=== PATIENT | female | born 1950 | race Caucasian/White ===

== ENCOUNTER 2022-07-26 08:26 | Emergency (ER) | payer MEDICARE, OTHER ==
[~2022-07-26] VITALS: Ht 157.5 cm; Wt 92.3 kg
[2022-07-26 08:34] VITALS: TEMP 97.8
[2022-07-26 08:57] LABS: BASO # 0.1 K/mm3 (0.0-0.2); EOS # 0.8 K/mm3 (0.0-0.7); EOS % 7.6 % (0.0-4.0); GRAN # 5.6 K/mm3 (1.4-6.5); HEMATOCRIT 45.9 % (37.0-47.0); LYMPH # 2.8 K/mm3 (1.2-3.4); LYMPH % 28.1 % (20.0-51.0); MEAN CELL VOLUME 86 fl (80.0-100.0); MEAN CORPUSCULAR HEMOGLOBIN 28 pg (27-31); MEAN CORPUSCULAR HGB CONC 33 g/dl (33.0-37.0); MEAN PLATELET VOLUME 12.1 fl (7.4-10.4); MONO # 0.7 K/mm3 (0.1-0.6); MONO % 7.1 % (1.7-9.3); PLATELET COUNT 252 K/mm3 (130-400); RED BLOOD COUNT 5.33 M/mm3 (4.10-5.30); REDCELL DISTRIBUTION WIDTH-CV 13.8 % (11.5-14.5)
[2022-07-26 09:08] LABS: ANION GAP 13 mmol/L (7-16); BLOOD UREA NITROGEN 15 mg/dL (10-20); CALCIUM 9.8 mg/dL (8.4-10.2); CARBON DIOXIDE 26 mmol/L (23-31); CHLORIDE 104 mmol/L (98-107); CREATININE, serum 0.79 mg/dL (0.57-1.11); GLUCOSE 100 mg/dL (70-99); POTASSIUM 3.6 mmol/L (3.5-4.5); SODIUM 143 mmol/L (136-145)
[2022-07-26 09:17] LABS: TROPONIN-I < 0.010 ng/mL (0.00-0.033)
[2022-07-26 10:26] VITALS: BP 162/82; PULSE 63
== END 2022-07-26 10:29 | disposition home or self-care (01) ==
LOC: COL.ER 08:26
PROVIDERS: Emergency Medicine
DX: M25.512 Pain in left shoulder (principal); Z28.310 Unvaccinated for COVID-19